=== PATIENT | female | born 1960 | race Caucasian/White ===

== ENCOUNTER 2018-10-01 14:03 | Emergency (ER) | payer MEDICAID ==
--- NOTE | 2018-10-01 14:39 | ER Document Report ---
ED Medical Screen (RME) - General Chief Complaint: High Blood Pressure Stated Complaint: BLOOD PRESSURE ISSUES Time Seen by Provider: 10/01/18 14:36 TRAVEL OUTSIDE OF THE [place] 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 Patient states that she is feeling much better after taking her anxiety medicine. Patient states that she was noted to have elevated blood pressure at her house by EMS. She has been on atenolol for over a month without any difficulties otherwise. She is eating and drinking normally. She is urinating normally and having normal bowel movements. Denies drug allergies. No other concerns or complaints. Denies YOUNG, changes in vision/mentation/speech, fever, neck pain, URI, CP, SOB, Abd pain, dysuria, muscle paralysis/weakness, back pain, or rash. I have treated and performed a rapid initial assessment of this patient. A comprehensive ED assessment and evaluation of the patient, analysis of test results and completion of medical decision making process will be conducted by additional ED providers. PHYSICAL EXAMINATION: GENERAL: Well-appearing, well-nourished and in no acute distress. A&Ox4. Answers questions appropriately. Eyes: PERRLA, EOMI b/l. LUNGS: Breath sounds clear to auscultation bilaterally and equal. No wheezes rales or rhonchi. HEART: Regular rate and rhythm without murmurs, rubs, gallops. Extremities: No cyanosis, clubbing, or edema b/l. NEUROLOGICAL: Normal speech, normal gait. Cranial nerves grossly intact. PSYCH: Normal mood, normal affect. - Related Data Allergies/Adverse Reactions: No Known Allergies Allergy (Verified 10/01/18 14:15) Physical Exam - Vital signs Vitals: Temp Pulse Resp BP Pulse Ox 98.1 F 75 16 163/76 H 100 10/01/18 14:21 10/01/18 14:21 10/01/18 14:21 10/01/18 14:21 10/01/18 14:21 Course - Vital Signs Vital signs: Temp Pulse Resp BP Pulse Ox 98.1 F 75 16 163/76 H 100 10/01/18 14:21 10/01/18 14:21 10/01/18 14:21 10/01/18 14:21 10/01/18 14:21
[2018-10-01 15:09] LABS: ABSOLUTE LYMPHOCYTES (AUTO) 0.7 10^3/uL (0.5-4.7); ABSOLUTE MONOCYTES (AUTO) 0.3 10^3/uL (0.1-1.4); ABSOLUTE NEUT (AUTO) 3.6 10^3/uL (1.7-8.2); BASOPHILS % (AUTO) 0.9 % (0-2); EOSINOPHILS % (AUTO) 0.7 % (0-6); HEMATOCRIT 37.8 % (36.0-47.0); HEMOGLOBIN 13.4 g/dL (12.0-15.5); LYMPHOCYTES % (AUTO) 15.1 % (13-45); MEAN CORPUSCULAR HEMOGLOBIN 30.4 pg (27.0-33.4); MEAN CORPUSCULAR HGB CONC 35.5 g/dL (32.0-36.0); MEAN CORPUSCULAR VOLUME 86 fl (80-97); MONOCYTES % (AUTO) 6.4 % (3-13); PLATELET COUNT 291 10^3/uL (150-450); RED BLOOD COUNT 4.41 10^6/uL (3.72-5.28); RED CELL DISTRIBUTION WIDTH 12.6 % (11.5-14.0); SEGMENTED NEUTROPHILS % (AUTO) 76.9 % (42-78); TOTAL CELLS COUNTED % (AUTO) 100 %; WHITE BLOOD COUNT 4.7 10^3/uL (4.0-10.5)
[2018-10-01 15:14] LABS: APPEARANCE,URINE CLEAR; BILIRUBIN,URINE NEGATIVE (NEGATIVE); COLOR,URINE STRAW; GLUCOSE, URINE NEGATIVE (NEGATIVE); KETONES,URINE NEGATIVE (NEGATIVE); LEUKOCYTE ESTERASE,URINE LARGE (NEGATIVE); NITRITE,URINE NEGATIVE (NEGATIVE); PROTEIN,URINE NEGATIVE (NEGATIVE); URINE SPECIFIC GRAVITY 1.002; UROBILINOGEN,URINE NEGATIVE mg/dL (<2.0)
[2018-10-01 15:25] LABS: ALANINE AMINOTRANSFERASE 21 U/L (9-52); ALBUMIN 5.1 g/dL (3.5-5.0); ALKALINE PHOSPHATASE 102 U/L (38-126); ANION GAP 10 (5-19); ASPARTATE AMINO TRANSFERASE 30 U/L (14-36); BILIRUBIN,DIRECT 0.2 mg/dL (0.0-0.4); BILIRUBIN,TOTAL 0.5 mg/dL (0.2-1.3); BLOOD UREA NITROGEN 9 mg/dL (7-20); CALCIUM 10.2 mg/dL (8.4-10.2); CARBON DIOXIDE 27 mmol/L (22-30); CHLORIDE 92 mmol/L (98-107); GLUCOSE 99 mg/dL (75-110); POTASSIUM 4.3 mmol/L (3.6-5.0); SODIUM 129.2 mmol/L (137-145); TOTAL PROTEIN 8.3 g/dL (6.3-8.2)
[2018-10-01] MEDS ORDERED: NORMAL SALINE 1000 ML 1,000 ML IV ONE (16:09)
--- NOTE | 2018-10-01 16:23 | ER Document Report ---
ED General - General Chief Complaint: High Blood Pressure Stated Complaint: BLOOD PRESSURE ISSUES Time Seen by Provider: 10/01/18 14:36 TRAVEL OUTSIDE OF THE [place] IN LAST 30 DAYS: No - HPI Notes: Patient is a 57-year-old female who presents the emergency department for evaluation. She states she was sitting at, on the couch, when she became numb and tingly all over. She stated that everything felt "heavy." She took her blood pressure and it was found to be elevated. She states she took a Valium, which she takes as needed for anxiety, and all of her symptoms dissipated. She denies any visual changes. No recent head traumas. No difficulty speaking or swallowing. She is moving her arms and legs without difficulty at this time. Patient also remarks that she is being worked up by her four h agent/oncologist for hyponatremia. - Related Data Allergies/Adverse Reactions: No Known Allergies Allergy (Verified 10/01/18 14:15) Past Medical History - Social History Smoking Status: Former Smoker Frequency of alcohol use: None Drug Abuse: None Family History: Reviewed & Not Pertinent Patient has suicidal ideation: No Patient has homicidal ideation: No - Past Medical History Cardiac Medical History: Reports: Hx Hypertension Pulmonary Medical History: Reports: Hx COPD Endocrine Medical History: Reports: Hx Hypothyroidism Renal/ Medical History: Denies: Hx Peritoneal Dialysis Malignancy Medical History: Reports: Other - Unknown cancer of the neck, patient was on chemo/radiation Psychiatric Medical History: Reports: Hx Anxiety Past Surgical History: Reports: Hx Abdominal Surgery - colostomy and reversal and hernia repair Review of Systems - Review of Systems Constitutional: No symptoms reported EENT: No symptoms reported Cardiovascular: No symptoms reported Respiratory: No symptoms reported Gastrointestinal: No symptoms reported Genitourinary: No symptoms reported Musculoskeletal: No symptoms reported Skin: No symptoms reported Neurological/Psychological: See HPI Physical Exam - Vital signs Vitals: Temp Pulse Resp BP Pulse Ox 98.1 F 75 16 163/76 H 100 10/01/18 14:21 10/01/18 14:21 10/01/18 14:21 10/01/18 14:21 10/01/18 14:21 - Notes Notes: Vital signs reviewed, please refer to chart. Head is normocephalic, atraumatic. Pupils equal round, reactive to light. Neck is supple without meningismus. Heart is regular rate and rhythm. Lungs are clear to auscultation bilaterally. Abdomen is soft, nontender, normoactive bowel sounds throughout. Extremities without cyanosis, clubbing. Posterior calves are nontender. Peripheral pulses are equal. Skin is warm and dry. Patient is awake, alert, oriented x3. Cranial nerves II - XII are grossly intact without focal neurological deficits. Strength is plus 5 out of 5 bilateral lower extremities. Sensation is intact. Reflexes symmetrical. Intact [id number], rapid alternating movements, [id number]. Course - Re-evaluation Re-evalutation: 10/01/18 16:23 Patient presents to the emergency department for evaluation. She was feeling numb and tingly all over. My strong this patient is that this was related to her anxiety. Certainly her anxiety could have been driven up her blood pressure as well. Her laboratory investigations were remarkable for hyponatremia only. I did initially order IV fluids, but the patient remarks to me that this is not new. Her four h agent/oncologist is evaluating her for this at this time. Patient feels completely asymptomatic. She has a totally normal neurological exam. Her blood pressure was elevated here, but only mildly so. She is to continue her home medications as prescribed. She is to follow-up with her primary care physician as well as heme-onc. She is to return the emergency department with worsening or new concerning symptoms of any sort. - Vital Signs Vital signs: Temp Pulse Resp BP Pulse Ox 98.1 F 75 16 163/76 H 100 10/01/18 14:21 10/01/18 14:21 10/01/18 14:21 10/01/18 14:21 10/01/18 14:21 - Laboratory Result Diagrams: 10/01/18 14:53 10/01/18 14:53 Laboratory results interpreted by me: 10/01/18 10/01/18 14:53 14:53 Sodium 129.2 L Chloride 92 L Total Protein 8.3 H Albumin 5.1 H Urine Blood MODERATE H Ur Leukocyte Esterase LARGE H Discharge - Discharge Clinical Impression: Hyponatremia, Numbness and tingling Hypertension Qualifiers: Hypertension type: essential hypertension Qualified Code(s): I10 - Essential (primary) hypertension Condition: Stable Disposition: HOME, SELF-CARE Instructions: High Blood Pressure, Requiring Treatment ([facility]), Hyponatremia ([facility]) Additional Instructions: Follow-up with your primary care provider as well as your four h agent/oncologist. Return to the emergency department with worsening or n ew concerning symptoms any sort.
[2018-10-01 16:59] VITALS: BP 150/74
== END 2018-10-01 16:57 | disposition home or self-care (01) ==
LOC: ER 14:03
DX: E87.1 Hypo-osmolality and hyponatremia (principal); R20.0 Anesthesia of skin; I10 Essential (primary) hypertension; J44.9 Chronic obstructive pulmonary disease, unspecified
CPT/HCPCS: 36415; 80053; 81001; 85025; 99283